=== PATIENT | male | born 2000 | race Caucasian/White ===

== ENCOUNTER 2021-03-23 22:20 | Emergency (ER) | payer OTHER, SELFPAY ==
[2021-03-23 22:23] VITALS: BP 119/70; PULSE 88; RESP 18; TEMP 37; O2SAT 100
--- NOTE | 2021-03-23 22:43 | ED.GENADULT ---
HPI - General Adult General Chief complaint: Unspecified Stated complaint: SWOLLEN THROAT Time Seen by Provider: 03/23/21 22:31 Source: patient Mode of arrival: ambulatory Limitations: no limitations History of Present Illness HPI narrative: Patient is a 20-year-old male complaining of sore throat for the past 2 weeks. Patient states it hurts when he swallows. Patient states that it feels like there is a growth in the back of my throat . Patient denies any neck swelling, fever or chills. Patient denies any chest pain or shortness of breath. Related Data Allergies Allergy/AdvReac Type Severity Reaction Status Date / Time No Known Allergies Allergy Unknown Verified 03/23/21 22:41 Review of Systems Review of Systems: All systems reviewed & are unremarkable except as noted in HPI and below Constitutional: Constitutional: Denies body ache(s), Denies chills, Denies excessive sweating, Denies fatigue, Denies fever(s), Denies headache(s), Denies lethargy, Denies malaise, Denies weakness and Denies weight loss Eyes: Eyes: Denies blurry vision, Denies change in vision and Denies loss of vision ENT: Denies dizziness, Denies ear discharge, Denies headache(s), Denies lip swelling, Denies epistaxis, Denies nasal congestion, Denies neck pain and Denies tongue swelling Cardiovascular: Cardiovascular: Denies chest pain, Denies chest pain at rest, Denies chest pain with activity, Denies diaphoresis, Denies rapid heart rate, Denies edema, Denies irregular heart rhythm, Denies lightheadedness, Denies palpitations, Denies dyspnea and Denies dyspnea on exertion Respiratory: Respiratory: Denies chest congestion, Denies cough, Denies hemoptysis, Denies dyspnea and Denies dyspnea on exertion Gastrointestinal: Gastrointestinal: Denies abdominal pain, Denies melena, Denies hematochezia, Denies diarrhea, Denies nausea, Denies vomiting and Denies hematemesis Musculoskeletal: Musculoskeletal: Denies abnormal gait, Denies deformity, Denies joint swelling, Denies limited range of motion, Denies neck pain and Denies numbness Neurologic: Denies Abnormal speech present, Denies abnormal gait, Denies confusion, Denies dizziness, Denies headache(s), Denies focal weakness, Denies loss of vision, Denies numbness, Denies Other visual disturbances, Denies Sensory deficit (Neuro) and Denies weakness Psychiatric: Psychiatric: Denies confusion, Denies depression, Denies auditory hallucinations, Denies homicidal ideation and Denies suicidal ideation Endocrine: Endocrine: Denies cold intolerance, Denies excessive sweating, Denies fatigue, Denies heat intolerance and Denies palpitations Hematologic/Lymphatic: Hematologic/Lymphatic: Denies easy bleeding and Denies easy bruising Allergic/Immunologic: Allergic/Immunologic: Denies lip swelling, Denies throat swelling and Denies tongue swelling PMFSH Comments Past medical history: None Family history: Noncontributory Social history: Positive for smoker no EtOH or drug use Exam Const: General: cooperative, healthy appearing, comfortable, no acute distress and well developed HENMT: Head: normal to inspection Ears: hearing grossly normal bilaterally and external ears normal General nose exam: Normal external nose present and Normal nares present Face and sinus: normal facial exam and sinuses nontender Mouth: Yes lip normal, Yes tongue normal and No muffled voice Throat: other (Slightly erythematous oropharyngeal area no significant swelling, no exudat) Other: Negative for exudates, negative for drooling, negative for muffled voice Eyes: General: appearance normal, both eyes and all related structures Neck: Neck: normal visual inspection, full ROM and no meningeal signs Resp: Effort & Inspection: normal respiratory effort Skin: General skin exam: normal color Neuro: General: oriented to person, oriented to place, oriented to time, gait normal and tone normal Extrem: General: normal to inspection and full ROM Psych:
[2021-03-24 00:46] VITALS: BP 128/80; PULSE 78; RESP 20; O2SAT 100
== END 2021-03-24 00:47 | disposition home or self-care (01) ==
PROVIDERS: Emergency Provider Emergency Medicine
DX: J02.8 Acute pharyngitis due to other specified organisms (principal)
CPT/HCPCS: 87081; 87880; 96372; 99283; J1100

== ENCOUNTER 2021-04-12 07:44 | Emergency (ER) | payer OTHER, SELFPAY ==
--- NOTE | ~2021-04-12 | CT_ITS ---
EXAMINATION: CT soft tissue neck w con DATE: 04/12/2021 09:19 INDICATION: Throat with left-sided pain while eating and lump/swelling at the left side of the neck. TECHNIQUE: Computed tomography (CT) of the neck was performed with 75 mL Omnipaque-350 intravenous co ntrast. Automated exposure control and iterative reconstruction technique were employed. The dose-precious gth product was 396.52 mGy-cm. COMPARISON: None FINDINGS: There is mild asymmetric swelling of the left palatine tonsil without evident abscess. There is an as ymmetrically enlarged left level 2 jugular chain lymph node which measures 3.8 x 1.8 x 1.5 cm which d emonstrates hyperemia with subtly increased enhancement. No abscess. Normal epiglottis. The airway re joe patent. Small mucous retention cyst in the right maxillary sinus. Mastoid air cells, middle ear cavities and bilateral upper lung zones are clear. Bilateral parotid and submandibular glands as wel l as the thyroid are normal. The cervical vasculature appears normal with mild mixing artifact in the bilateral internal jugular veins. Mild upper thoracic dextrocurvature. IMPRESSION: 1. Mild asymmetric swelling of the left palatine tonsil consistent with tonsillitis without abscess. 2. Asymmetrically enlarged and hyperemic likely reactive left level 2 jugular chain lymph node measur ing up to 1.5 cm in maximal short axis diameter. Recommend clinical follow-up to resolution. Reviewed, dictated and finalized at location A. IMPRESSION: 1. Mild asymmetric swelling of the left palatine tonsil consistent with tonsill itis without abscess. 2. Asymmetrically enlarged and hyperemic likely reactive left level 2 jugular c judith lymph node measuring up to 1.5 cm in maximal short axis diameter. Recommen d clinical follow-up to resolution.
[2021-04-12 07:47] VITALS: BP 126/89; PULSE 100; RESP 20; TEMP 36.8; O2SAT 94
[2021-04-12 07:53] VITALS: O2SAT 94
--- NOTE | 2021-04-12 08:02 | ED.URI ---
HPI - URI/Sore Throat General Chief Complaint: Upper Respiratory Infection Stated Complaint: SORE THROAT Time Seen by Provider: 04/12/21 07:51 History of Present Illness HPI Narrative: Sore throat for several days. Originally started 3 weeks ago on the right side. He was seen here and diagnosed with a viral infection. It improved with a course of steroids. Shortly after completion it returned on the left side. No fever. Related Data Allergies Allergy/AdvReac Type Severity Reaction Status Date / Time No Known Allergies Allergy Unknown Verified 04/12/21 07:52 Review of Systems Review of Systems: All systems reviewed & are unremarkable except as noted in HPI and below Constitutional: Constitutional: Denies chills and Denies fever(s) ENT: Reports sore throat Comments: odynophagia Cardiovascular: Cardiovascular: Denies chest pain Respiratory: Respiratory: Reports cough and Denies dyspnea Gastrointestinal: Gastrointestinal: Denies nausea and Denies vomiting PMF Social History Social History Gender identity (if verbalized by the patient): Male Exam Const: General: healthy appearing, no acute distress and alert Orientation/consciousness: patient oriented x3 HENMT: Throat: posterior oropharynx abnormal erythema Neck: Neck: lymphadenopathy (left anterior) Resp: Effort & Inspection: normal respiratory effort Auscultation: clear to auscultation bilaterally Cardio: Rate: regular rate Rhythm: regular rhythm GI: GI Palp: Yes Soft to palpation and No Tenderness to palpation present (GI) Course Vital Signs Vital signs: Vital Signs Temperature 36.8 C 04/12/21 07:47 Pulse Rate 100 04/12/21 07:47 Respiratory Rate 20 04/12/21 07:47 Blood Pressure 126/89 04/12/21 07:47 Pulse Oximetry 94 04/12/21 07:47 Temperature 36.8 C 04/12/21 07:47 Pulse Rate 68 04/12/21 12:09 Respiratory Rate 18 04/12/21 12:09 Blood Pressure 123/83 04/12/21 12:09 Pulse Oximetry 100 04/12/21 12:09 MDM - URI/Sore Throat Differential Diagnosis Differential diagnosis: Likely upper respiratory infection and pharyngitis Medical Records Attestation: I reviewed the patient's medical records. Lab Data Attestation: I reviewed the patient's lab results. Result diagrams: 04/12/21 08:41 04/12/21 09:05 Labs: Lab Results 04/12/21 04/12/21 04/12/21 Range/Units 08:41 08:41 08:41 WBC 11.3 H (4.5-10.0) K/mm3 RBC 5.34 (4.6-6.20) M/mm3 Hgb 15.4 (14.0-18.0) g/dL Hct 46.6 (42.0-52.0) % MCV 87.3 (80-100) fl MCH 28.8 (26-34) pg MCHC 33.0 (32-36) g/dl RDW 11.7 (11.5-14.5) % Plt Count 321 (150-375) k/mm3 MPV 9.7 (7.4-10.4) fl Immature Gran % (Auto) 0.2 (0-0.5) % Neut % (Auto) 55.0 (45.5-73.1) % Lymph % (Auto) 33.3 (18.3-44.2) % [place] % (Auto) 8.3 (2.6-8.5) % Eos % (Auto) 2.8 (0-4.4) % Baso % (Auto) 0.4 (0.2-1.2) % Lymph # (Auto) 3.75 H (0.9-3.2) K/mm3 [place] # (Auto) 0.9 H (0.1-0.6) K/mm3 Eos # (Auto) 0.3 (0-0.3) K/mm3 Baso # (Auto) 0.1 (0.0-0.1) K/mm3 Abs Immat Gran (auto) 0.02 (0.00-0.031) K/mm3 Absolute Neuts (auto) 6.2 (1.3-6.7) K/mm3 Absolute Nucleated RBC 0.0 (0.0-0.012) K/mm3 Nucleated RBC % 0.0 (0.0-0.2) % Sodium 139 (134-143) mmol/L Potassium 3.7 (3.4-5.0) mmol/L Chloride 101 (98-107) mmol/L Carbon Dioxide 28 (22-30) mmol/L Anion Gap 10 (8-16) mmol/L BUN 8 (8-21) mg/dL Creatinine 0.80 (0.7-1.3) mg/dL Estim Creat Clear Calc 99 ml/min Estimated GFR > 60 (59 - ) Glucose 95 (65-110) mg/dL Calcium 9.5 (8.9-10.7) mg/dL Monoscreen Negative (Negative) 04/12/21 Range/Units 09:05 WBC (4.5-10.0) K/mm3 RBC (4.6-6.20) M/mm3 Hgb (14.0-18.0) g/dL Hct (42.0-52.0) % MCV (80-100) fl MCH (26-34) pg MCHC (32-36) g/dl RDW (11.5-
[2021-04-12 08:51] LABS: Basophils Absolute Auto 0.1 K/mm3 (0.0-0.1); Basophils Percent Auto 0.4 % (0.2-1.2); Eosinophils Absolute Auto 0.3 K/mm3 (0-0.3); Eosinophils Percent Auto 2.8 % (0-4.4); Hematocrit 46.6 % (42.0-52.0); Hemoglobin 15.4 g/dL (14.0-18.0); Immature Granulocyte Absolute 0.02 K/mm3 (0.00-0.031); Immature Granulocyte Percent A 0.2 % (0-0.5); Lymphocytes Absolute Auto 3.75 K/mm3 (0.9-3.2); Lymphocytes Percent Auto 33.3 % (18.3-44.2); Mean Corpuscular Hemoglobin 28.8 pg (26-34); Mean Corpuscular Volume 87.3 fl (80-100); Mean Platelet Volume 9.7 fl (7.4-10.4); Monocytes Absolute Auto 0.9 K/mm3 (0.1-0.6); Monocytes Percent Auto 8.3 % (2.6-8.5); Neutrophils Absolute Auto 6.2 K/mm3 (1.3-6.7); Platelet Count Result 321 k/mm3 (150-375); Red Blood Count 5.34 M/mm3 (4.6-6.20); Red Cell Distribution Width 11.7 % (11.5-14.5); White Blood Count 11.3 K/mm3 (4.5-10.0)
[2021-04-12 09:02] LABS: Anion Gap 10 mmol/L (8-16); Blood Urea Nitrogen 8 mg/dL (8-21); Calcium 9.5 mg/dL (8.9-10.7); Carbon Dioxide 28 mmol/L (22-30); Chloride 101 mmol/L (98-107); Estimated CRCL calculation 99 ml/min; Estimated Glomerular Filt Rate > 60; Glucose 95 mg/dL (65-110); Potassium 3.7 mmol/L (3.4-5.0); Sodium 139 mmol/L (134-143)
[2021-04-12 09:07] LABS: Estimated CRCL calculation 88 ml/min; Estimated Glomerular Filt Rate > 60
[2021-04-12 09:39] LABS: Monoscreen Negative (Negative); Negative Monotest Control Negative (Negative); Positive Monotest Control Positive (Positive)
[2021-04-12 10:11] VITALS: BP 126/88; PULSE 65; RESP 18; O2SAT 100
[2021-04-12] MEDS: AMPICILLIN SULB 3 GM/NS 100 ML 3 GM/100 ML VIAL IVPB (11:26)
[2021-04-12] MEDS: KETOROLAC 30 MG/ML VIAL (*BKC) IV PUSH (11:27)
[2021-04-12] MEDS: DEXAMETHASONE SOD PHOS INJ 4 MG/ML VIAL 10 MG IV PUSH (11:29)
[2021-04-12 12:09] VITALS: BP 123/83; PULSE 68; RESP 18; O2SAT 100
== END 2021-04-12 12:15 | disposition home or self-care (01) ==
PROVIDERS: Emergency Provider Emergency Medicine
DX: J03.90 Acute tonsillitis, unspecified (principal)
CPT/HCPCS: 36415; 70491; 80048; 85025; 86308; 87081; 87880; 96365; 96375; 99284; J0295; J1100; J1885; Q9967

== ENCOUNTER 2021-06-05 17:10 | Emergency (ER) | payer OTHER, SELFPAY | END 2021-06-05 22:44 | disposition left against medical advice (07) | DX: Z53.21 Procedure and treatment not carried out due to patient leaving prior to being seen by health care provider (principal) | CPT/HCPCS: 99199 ==

== ENCOUNTER 2021-06-07 11:08 | Emergency (ER) | payer OTHER, SELFPAY ==
--- NOTE | ~2021-06-07 | XR_ITS ---
EXAMINATION: XR chest 2V EXAM DATE: 06/07/2021 11:31 INDICATION: Cough. TECHNIQUE: Frontal and lateral projections of the chest obtained and reviewed. Comparison is made to prior examination from 09/17/2018. FINDINGS: Small amount of ill-defined right upper lobe airspace disease, possible acute infectious p rocess. Please clinically correlate. The lungs are otherwise clear. There are no pleural effusions. The cardiomediastinal silhouette is within normal limits. There is no pneumothorax suspected. The bones and soft tissues are unremarkable. IMPRESSION: Small amount of right upper lobe acute airspace disease, possible developing pneumonia. Reviewed, dictated and finalized at location B. IMPRESSION: Small amount of right upper lobe acute airspace disease, possible d eveloping pneumonia.
[2021-06-07 11:21] VITALS: BP 123/71; PULSE 79; RESP 16; TEMP 36.8; O2SAT 99
--- NOTE | 2021-06-07 11:25 | ED.URI ---
HPI - URI/Sore Throat General Chief Complaint: Upper Respiratory Infection Stated Complaint: Cough History of Present Illness HPI Narrative: This is a 20-year-old male comes in complaining of having some shortness of breath states that he has a history of asthma. Patient states that he has had this cough for going on for a few months his parents have encouraged him to come in but he is accompanied patient states that he has not been feeling well so he came in due to increased shortness of breath Related Data Home Medications Medication Instructions Recorded Confirmed propranolol 10 mg PO DAILY 06/07/21 06/07/21 sumatriptan succinate 25 mg PO PRN PRN 06/07/21 06/07/21 Allergies Allergy/AdvReac Type Severity Reaction Status Date / Time No Known Allergies Allergy Unknown Verified 06/07/21 11:26 Review of Systems Review of Systems: Chest shortness of breath, cough All systems reviewed & are unremarkable except as noted in HPI and below PMFSH Social History Social History Gender identity (if verbalized by the patient): Male Comments At time as signature, I have reviewed and agree with nursing past medical, social, surgical and family history. Please see nursing chart for further information. There is no relevant family history pertinent to the presenting complaint. Exam Narrative: GENERAL:Well-appearing and in no acute distress. EYES: PERRLA . ENT: Nares clear, moderate rhinorrhea Mucous membranes moist. NECK: Supple. CHEST scattered wheezes throughout to auscultation. No respiratory distress. HEART: Regular rate and rhythm ABDOMEN: Soft, nontender, nondistended, normal active bowel sounds. EXTREMITIES: Normal range of motion. No edema. SKIN: Warm, dry, no rash. NEURO: No focal deficits. Alert and oriented x3. Course Course Emergency Course: Chest x-ray represents possibility of pneumonia Vital Signs Vital signs: Vital Signs Temperature 98.2 F 06/07/21 11:21 Pulse Rate 79 06/07/21 11:21 Respiratory Rate 16 06/07/21 11:21 Blood Pressure 123/71 06/07/21 11:21 Pulse Oximetry 99 06/07/21 11:21 Temperature 98.2 F 06/07/21 11:21 Pulse Rate 79 06/07/21 11:21 Respiratory Rate 16 06/07/21 11:21 Blood Pressure 123/71 06/07/21 11:21 Pulse Oximetry 99 06/07/21 11:21 MDM - URI/Sore Throat Differential Diagnosis Differential diagnosis: Likely upper respiratory infection, croup, otitis media, sinusitis, viral infection, bronchitis, influenza, pharyngitis and other (Pneumonia covid) Lab Data Labs: Lab Results 06/07/21 Range/Units 11:45 POC SARS CoV-2 Ag Negative (Negative) Discharge Plan Discharge Clinical Impression: Pneumonia Qualifiers: Pneumonia type: due to unspecified organism Laterality: unspecified laterality Lung location: upper lobe of lung Qualified Code(s): J18.9 - Pneumonia, unspecified organism Patient Disposition: Home, Self-Care Condition: Stable Instructions: Antibiotic Form, Pneumonia (ED) Additional Instructions: Recommend antihistamine such as Benadryl at night time and Claritin/Zyrtec/Jane during the day Also, recommend symptomatic treatment includes: rest, fluids, and increase humidity of the air at home. Recommend Acetaminophen or nonsteroidal anti-inflammatory agents (NSAIDs) as directed in the bottle to reduce fever and/pain/headache. Avoid smoking/second-hand smoke. Limit visits to areas with large crowds. Please schedule a follow-up visit with your personal physician for further evaluation and treatment within 3-5days. Including recheck and discussion of your blood pressure. If your symptoms persist, change or worsen significantly before you can contact your personal physician then please, without delay, go to the emergency department for further evaluation Prescriptions: New albuterol sulfate 90 mcg/actuation HFA aerosol inhaler 2 puff inhalation QID PRN
== END 2021-06-07 12:05 | disposition home or self-care (01) ==
PROVIDERS: Emergency Provider Nurse Practitioner Family
DX: J18.9 Pneumonia, unspecified organism (principal); Z20.822 Contact with and (suspected) exposure to COVID-19
CPT/HCPCS: 71046; 87426; 99213; C9803; G0463

== ENCOUNTER 2022-08-23 18:14 | Emergency (ER) | payer OTHER, SELFPAY ==
--- NOTE | ~2022-08-23 | XR_ITS ---
EXAMINATION: XR chest 2V Exam Date/Time: 08/23/2022 18:26 PRE FABRICATOR HISTORY: cough with sob Comparison: 06/07/2021 and 09/17/2018. RESULT: Lines, tubes, and devices: None. Lungs and pleura: Streaky perihilar opacities and cuffing. No focal consolidation, pneumothorax, or effusion. Cardiomediastinal silhouette: Stable. Other: No acute osseous or upper abdominal finding. IMPRESSION: Pulmonary opacities may represent bronchiolitis, as can be seen with atypical infection, asthma, aspi ration, and small airways disease. Reviewed, dictated and finalized at location K. FABRICATOR IMPRESSION: Pulmonary opacities may represent bronchiolitis, as can be seen with atypical i nfection, asthma, aspiration, and small airways disease.
[2022-08-23 18:23] VITALS: BP 125/80; PULSE 108; RESP 18; TEMP 37; O2SAT 99
--- NOTE | 2022-08-23 18:36 | ED.URI ---
HPI - URI/Sore Throat General Chief Complaint: Upper Respiratory Infection Stated Complaint: Cough,Shortness of Breath Time Seen by Provider: 08/23/22 18:36 Source: patient Mode of arrival: ambulatory Limitations: no limitations History of Present Illness HPI Narrative: 22-year-old male presents with complaint of cough, shortness of breath chest tightness for the past 2-3 days. Reports history of pneumonia, bronchitis. Patient vapes. Had asthma as a child. States that his boss made him leave work early today to do a COVID test, which was negative. Does not currently have a primary care physician. Afebrile. Used his sister's albuterol nebulizer prior to arrival. all systems reviewed and negative except as noted above. Related Data Allergies Allergy/AdvReac Type Severity Reaction Status Date / Time No Known Allergies Allergy Unknown Verified 08/23/22 18:17 Review of Systems Review of Systems: CONSTITUTIONAL: Denies fever, chills, or sweats. EYES: Denies visual changes, redness, or discharge. ENT: Denies rhinorrhea, congestion, sore throat, or otalgia. CARDIOVASCULAR: Denies chest pain, palpitations, or edema. RESPIRATORY: Reports cough, chest tightness and dyspnea with exertion. GASTROINTESTINAL: Denies abdominal pain, nausea, vomiting, or diarrhea. GENITOURINARY: Denies dysuria or hematuria. SKIN: Denies rash or itching. MUSCULOSKELETAL: Denies back pain, joint pain, or myalgia. NEUROLOGIC: Denies headache, numbness, or weakness. PSYCHIATRIC: Denies anxiety or depression. All other systems reviewed are negative, except as documented in HPI. PMFSH Social History Social History Gender identity (if verbalized by the patient): Male Comments At time of signature, agree with nursing past medical, surgical, social and family history. There is no relevant family history pertinent to the presenting complaint. Exam Narrative: GENERAL: This is a well-nourished, well-developed patient, in no apparent distress. HEAD: normocephalic, atraumatic. EYES: PERRL. Sclera clear/white. Vision is grossly intact. EARS: External ears normal, auditory canals clear and without drainage, TMs normal without perforation. Hearing grossly intact. NOSE: External nose normal with no obvious nasal discharge, nares without redness, no rhinorrhea. THROAT: Mucous membranes moist, posterior pharynx clear. NECK: Neck supple, non-tender without lymphadenopathy, masses or thyromegaly. CARDIOVASCULAR: Regular rate and rhythm without murmurs, gallops, or rubs. RESPIRATORY: coarse lung sounds on inspiration and expiration throughout all lung paul. No respiratory distress. SKIN: warm, Dry, intact with no suspicious lesions or rash, good texture and turgor. NEURO: awake, alert, and oriented to person, place and time. There were no obvious focal neurologic abnormalities. EXTREMITIES: No joint tenderness, effusion, or edema noted. Course Course Level of Care: Express Care Visit Vital Signs Vital signs: Vital Signs Temperature 37.0 C 08/23/22 18: Pulse Rate 108 H 08/23/22 18:23 Respiratory Rate 18 08/23/22 18:23 Blood Pressure 125/80 08/23/22 18:23 Pulse Oximetry 99 08/23/22 18:23 Oxygen Delivery Room Air 08/23/22 18:23 Temperature 37.0 C 08/23/22 18:23 Pulse Rate 108 H 08/23/22 18:23 Respiratory Rate 18 08/23/22 18:23 Blood Pressure 125/80 08/23/22 18:23 Pulse Oximetry 99 08/23/22 18:23 Oxygen Delivery Room Air 08/23/22 18:23 Reviewed MDM - URI/Sore Throat MDM Narrative Medical decision making narrative: patient unable to [facility] prescriptions until tomorrow due to pharmacies being closed. His sister does have albuterol nebulizer that he can use. He was given Solu-Medrol IM prior to discharge. will prescribe antibiotic due to pneumonia history. No respiratory distress. Patient is aware of diagnosis, understands and agrees to mike
[2022-08-23] MEDS: methylPREDNISolone SOD SUCC 125 MG VIAL IM (19:01)
== END 2022-08-23 19:02 | disposition home or self-care (01) ==
PROVIDERS: Emergency Provider Nurse Practitioner Family
DX: J21.9 Acute bronchiolitis, unspecified (principal); J45.909 Unspecified asthma, uncomplicated
CPT/HCPCS: 71046; 96372; 99213; G0463; J2930

== ENCOUNTER 2022-10-11 18:09 | Emergency (ER) | payer OTHER, SELFPAY ==
[2022-10-11 18:20] VITALS: BP 118/78; PULSE 80; RESP 20; TEMP 36.4; O2SAT 99
--- NOTE | 2022-10-11 18:35 | ED.GENADULT ---
HPI - General Adult General Chief complaint: Urogenital-Male Stated complaint: sti shot Source: patient Mode of arrival: ambulatory Limitations: no limitations History of Present Illness HPI narrative: Patient presents requesting testing for chlamydia. He indicates his girlfriend is currently and was advised by her OBGYN about 3-4 weeks ago that she has chlamydia. She was treated with azithromycin. He was never treated and he is concerned that they have been passing it back and forth. He has experienced some dysuria as of this week. He denies any urethral discharge or other urinary symptoms outside of dysuria. No history of STI in past. No additional complaints or concerns. Related Data Home Medications Medication Instructions Recorded Confirmed buspirone 5 mg tablet 5 mg PO BID 10/11/22 10/11/22 propranolol 10 mg tablet 10 mg PO DAILY 10/11/22 10/11/22 sumatriptan succinate 25 mg tablet 25 mg PO DAILY 10/11/22 10/11/22 Allergies Allergy/AdvReac Type Severity Reaction Status Date / Time No Known Allergies Allergy Unknown Verified 10/11/22 18:16 Review of Systems Review of Systems: CONSTITUTIONAL: Denies fever, chills, or sweats. EYES: Denies visual changes, redness, or discharge. ENT: Denies rhinorrhea, congestion, sore throat, or otalgia. CARDIOVASCULAR: Denies chest pain, palpitations, or edema. RESPIRATORY: Denies cough or dyspnea. GASTROINTESTINAL: Denies abdominal pain, nausea, vomiting, or diarrhea. GENITOURINARY: reports dysuria. Denies hematuria, urethral discharge, scrotal swelling. SKIN: Denies rash or itching. MUSCULOSKELETAL: Denies back pain, joint pain, or myalgia. NEUROLOGIC: Denies headache, numbness, dizziness, or weakness. PSYCHIATRIC: Denies anxiety or depression. [facility] Past Medical History Medical History No pertinent past medical history Surgical History Surgical History No pertinent past surgical history Family History Family History Mother Family history non-contributory Social History Social History (Updated 10/11/22 @ 18:40 by Fermín Rollins, [facility], ) Additional living arrangements comments: lives with girlfriend Gender identity (if verbalized by the patient): Male Sexual Orientation (if Verbalized by the Patient): Straight or Heterosexual Spiritual care concerns: No Exam Narrative: GENERAL: Well-appearing, well-nourished, and in no acute distress. HEAD: Normocephalic, atraumatic. EYES: PERRLA and EOMI. ENT: Nares clear, no rhinorrhea or epistaxis. Mucous membranes moist. Oropharynx without tonsillar hypertrophy exudate or other lesions. Bilateral TMs pearly jarrett nonbulging NECK: Supple. No adenopathy or masses. No carotid bruits or JVD CHEST: Clear to auscultation. No respiratory distress. No wheezes rales or rhonchi HEART: Regular rate and rhythm. No murmur heard. Normal peripheral pulses. ABDOMEN: Soft, nontender, nondistended, normal active bowel sounds. GENITAL: no external genital lesions. No inguinal lymphadenopathy. No scrotal swelling. No testicular masses or tenderness. No urethral discharge. EXTREMITIES: Normal range of motion. No edema. SKIN: Warm, dry, no rash. NEURO: No focal deficits. Alert and oriented x3. PSYCH: Normal mood and affect. Course Course Emergency Course: This is a 22-year-old male who presented for evaluation of dysuria after recently being exposed to chlamydia. Patient had gonorrhea, chlamydia, Trichomonas testing performed today will treat for all as his girlfriend is and this would put her at high risk for miscarriage. Discussed safer sex practices. Advised that they should not have sexual intercourse until 1 week following completion of the therapy which should be 2 weeks from now. Encouraged him to follow up ou
[2022-10-11] MEDS: cefTRIAXone 500 MG, LIDOCAINE HCL 1% LOCAL INJ 1 ML IM (18:45)
[2022-10-11] MEDS: metroNIDAZOLE 250 MG TABLET 2000 MG PO (18:53)
== END 2022-10-11 19:01 | disposition home or self-care (01) ==
PROVIDERS: Emergency Provider Nurse Practitioner
DX: R30.0 Dysuria (principal); Z20.2 Contact with and (suspected) exposure to infections with a predominantly sexual mode of transmission
CPT/HCPCS: 81003; 87491; 87591; 87661; 96372; 99213; A9270; G0463; J0696

== ENCOUNTER 2023-05-19 17:49 | Emergency (ER) | payer OTHER, SELFPAY ==
--- NOTE | 2023-05-19 17:52 | ED.URI ---
HPI - URI/Sore Throat General Chief Complaint: Upper Respiratory Infection Stated Complaint: Flu symptoms Time Seen by Provider: 05/19/23 17:51 Source: patient Mode of arrival: ambulatory Limitations: no limitations History of Present Illness HPI Narrative: Patient is a 22-year-old male that presents with fever, chills, runny nose, sore throat, headache since yesterday. Patient states he had 1 episode of coughing so hard he vomited which helped relieve congestion. Patient taking Mucinex. Denies any ear pain, sinus pressure, frequent cough, shortness of breath, nausea, vomiting, diarrhea. Related Data Home Medications Medication Instructions Recorded Confirmed buspirone 5 mg tablet 5 mg PO BID 10/11/22 10/11/22 propranolol 10 mg tablet 10 mg PO DAILY 10/11/22 10/11/22 sumatriptan succinate 25 mg tablet 25 mg PO DAILY 10/11/22 10/11/22 Allergies Allergy/AdvReac Type Severity Reaction Status Date / Time No Known Allergies Allergy Unknown Verified 10/11/22 18:16 Review of Systems Review of Systems: All systems reviewed & are unremarkable except as noted in HPI and below Constitutional: Constitutional: Denies body ache(s), Reports chills, Denies fatigue, Reports fever(s), Denies headache(s), Denies malaise and Denies weakness Eyes: Eyes: Denies blurry vision, Denies itchy eyes and Denies loss of vision ENT: Denies otalgia, Reports headache(s), Reports nasal congestion, Reports nasal discharge, Denies sinus pain and Reports sore throat Cardiovascular: Cardiovascular: Denies chest pain, Denies irregular heart rhythm and Denies dyspnea Respiratory: Respiratory: Denies cough and Denies dyspnea Gastrointestinal: Gastrointestinal: Denies abdominal pain, Denies diarrhea, Denies nausea and Denies vomiting Musculoskeletal: Musculoskeletal: Denies back pain, Denies myalgias and Denies arthralgias Integumentary/Breasts: Skin/Breast: Denies pruritus and Denies rash Neurologic: Reports headache(s), Denies loss of vision and Denies weakness Psychiatric: Psychiatric: Reports no additional psychiatric complaints Endocrine: Endocrine: Denies fatigue Allergic/Immunologic: Allergic/Immunologic: Denies itchy eyes PMFSH Past Medical History Medical History (Updated 05/19/23 @ 18:31 by Savanna Chi, [employer]) No pertinent past medical history Surgical History Surgical History No pertinent past surgical history Family History Family History Mother Family history non-contributory Social History Social History (Updated 10/11/22 @ 18:40 by Fermín Rollins, JACINTA, ) Additional living arrangements comments: lives with girlfriend Gender identity (if verbalized by the patient): Male Sexual Orientation (if Verbalized by the Patient): Straight or Heterosexual Spiritual care concerns: No Comments At time of signature, agree with nursing past medical, surgical, social and family history. There is no relevant family history pertinent to the presenting complaint. Exam Const: General: cooperative, healthy appearing, comfortable, no acute distress and well nourished Nutritional Appearance: well nourished Orientation/consciousness: patient oriented x3 Limitations: no limitations HENMT: Head: normal to inspection, normocephalic and atraumatic Ears: hearing grossly normal bilaterally, external ears normal, EAC's normal, no periauricular adenopathy and TM abnormal obstructed by cerumen bilateral Face/Nose/Sinus: Normal external nose present, Abnormal mucous membranes and turbinates present erythematous bilateral and diffuse, normal facial exam, sinuses nontender and face symmetric Face and sinus: normal facial exam, sinuses nontender and face symmetric Mouth: Yes Normal oral and palatal mucosa present, Yes lip normal, Yes tongue normal, Yes Normal salivary glands and ducts present, Yes oropharynx norm
[2023-05-19 18:00] VITALS: BP 117/68; PULSE 104; RESP 16; TEMP 37.2; O2SAT 99
== END 2023-05-19 18:36 | disposition home or self-care (01) ==
PROVIDERS: Emergency Provider Nurse Practitioner Family; PCP Internal Medicine
DX: J06.9 Acute upper respiratory infection, unspecified (principal); H61.23 Impacted cerumen, bilateral; Z20.822 Contact with and (suspected) exposure to COVID-19
CPT/HCPCS: 87081; 87426; 87880; 99213; C9803; G0463

== ENCOUNTER 2023-05-22 10:31 | Emergency (ER) | payer OTHER, SELFPAY ==
--- NOTE | 2023-05-22 10:36 | ED.LOWEXIN ---
HPI - Extremity Injury (Lower) General Chief Complaint: Extremity Injury, Lower Stated Complaint: Injured right foot Time Seen by Provider: 05/22/23 10:38 Source: patient, RN notes reviewed and old records reviewed Mode of arrival: ambulatory Limitations: no limitations History of Present Illness HPI Narrative: 22-year-old male presents to the [facility] with complaints of pain to the dorsal aspect right foot. States last night he kicked a bike rack. Bruising, swelling noted over distal aspect of metatarsals 2 3 and 4. Able to move toes, positive pedal pulse. Sensation intact, capillary refill under 2 seconds. Patient reports pain with putting on of shoe as well as walking. Onset (ago): hour(s) (13) Injury: Right: foot Type of Injury: blunt Exacerbating factors: weight bearing and movement Associated symptoms: swelling and able to partially bear weight Related Data Home Medications Medication Instructions Recorded Confirmed albuterol sulfate 90 mcg/actuation 90 mcg inhalation DIRECTED 05/22/23 05/22/23 aerosol inhaler Allergies Allergy/AdvReac Type Severity Reaction Status Date / Time No Known Allergies Allergy Unknown Verified 10/11/22 18:16 Review of Systems Review of Systems: All systems reviewed & are unremarkable except as noted in HPI and below Constitutional: Constitutional: Reports no additional constitutional complaints Eyes: Eyes: Reports no additional eye complaints ENT: Reports system reviewed and no additional complaints, except as documented Cardiovascular: Cardiovascular: Reports no additional cardiovascular complaints, Denies chest pain and Denies dyspnea Respiratory: Respiratory: Reports no additional respiratory complaints, Denies chest congestion, Denies cough and Denies dyspnea Gastrointestinal: Gastrointestinal: Reports no additional gastrointestinal complaints, Denies abdominal pain, Denies nausea and Denies vomiting Musculoskeletal: Musculoskeletal: Reports as per HPI Integumentary/Breasts: Skin/Breast: Reports system reviewed and no additional complaints, except as docu Neurologic: Reports system reviewed and no additional complaints, except as documented Psychiatric: Psychiatric: Reports no additional psychiatric complaints Allergic/Immunologic: Allergic/Immunologic: Reports no additional allergic/immunologic complaints [facility] Past Medical History Medical History (Updated 05/22/23 @ 11:12 by Kaia Bird APRN) No pertinent past medical history Surgical History Surgical History No pertinent past surgical history Family History Family History Mother Family history non-contributory Social History Social History Additional living arrangements comments: lives with girlfriend Gender identity (if verbalized by the patient): Male Sexual Orientation (if Verbalized by the Patient): Straight or Heterosexual Spiritual care concerns: No Comments At the time of my signature, I reviewed and agree with the nursing past medical, surgical, social, and family history. There is no relevant family history pertinent to the patient complaint. Exam Const: General: cooperative, healthy appearing, comfortable, no acute distress, well developed, alert and well nourished Nutritional Appearance: well nourished Orientation/consciousness: patient oriented x3 Limitations: no limitations HENMT: Head: normal to inspection Ears: hearing grossly normal bilaterally and external ears normal Face/Nose/Sinus: Normal external nose present, Normal nares present, Normal nasal mucous membranes and turbinates present and normal facial exam Face and sinus: normal facial exam Mouth: Yes lip normal Eyes: General: appearance normal, both eyes and all related structures Alignment and Position: alignment normal Periorbital: perio
[2023-05-22 10:41] VITALS: BP 123/78; PULSE 84; RESP 16; TEMP 36.4; O2SAT 100
== END 2023-05-22 11:19 | disposition home or self-care (01) ==
PROVIDERS: Emergency Provider Nurse Practitioner; PCP Internal Medicine
DX: S90.31XA Contusion of right foot, initial encounter (principal); W21.89XA Striking against or struck by other sports equipment, initial encounter
CPT/HCPCS: 73630; 99213; G0463

== ENCOUNTER → 2023-06-11 09:39 | Outpatient (CLI) | payer OTHER, SELFPAY ==
--- NOTE | ~2023-06-11 | CT_ITS ---
EXAMINATION: CT diagnostic chest wo con DATE: 06/11/2023 09:53 INDICATION: Chronic cough TECHNIQUE: Computed tomography (CT) of the chest was performed without intravenous contrast. The dose -length product (DLP) was 143.60 mGy-cm. Automated exposure control and iterative reconstruction tech nique were employed. COMPARISON: None FINDINGS: The lungs are free of acute opacities. No pleural effusion or pneumothorax. No pathological ly enlarged thoracic lymph nodes are identified. The heart size is normal. The visualized osseous str uctures are unremarkable. Mild bilateral gynecomastia is noted. IMPRESSION: 1. No CT correlate for the patient's symptoms. Reviewed, dictated and finalized at location L.
== END ==
PROVIDERS: PCP Internal Medicine; Visit Provider Internal Medicine
DX: R05.3 Chronic cough (principal)
CPT/HCPCS: 71250

== ENCOUNTER 2023-09-26 14:10 | Emergency (ER) | payer OTHER, SELFPAY ==
[2023-09-26 14:28] VITALS: BP 114/70; PULSE 91; RESP 16; TEMP 36.8; O2SAT 100
--- NOTE | 2023-09-26 14:49 | ED.URI ---
HPI - URI/Sore Throat General Chief Complaint: Upper Respiratory Infection Stated Complaint: Cough Time Seen by Provider: 09/26/23 15:16 Source: patient, RN notes reviewed and old records reviewed Mode of arrival: ambulatory Limitations: no limitations History of Present Illness HPI Narrative: 23-year-old male presents to the [facility] with complaints of a cough since Thursday, 3 days ago. Reports a history of asthma but has not had any issues in last couple of years. Denies any other symptoms. Denies shortness of breath denies fevers. Patient states that this morning he coughed up some green stuff in his parents told on, get evaluated. Has taken DayQuil and NyQuil Denies concerns for COVID or flu Related Data Home Medications Medication Instructions Recorded Confirmed albuterol sulfate 90 mcg/actuation 90 mcg inhalation DIRECTED 05/22/23 05/22/23 aerosol inhaler Allergies Allergy/AdvReac Type Severity Reaction Status Date / Time No Known Allergies Allergy Unknown Verified 10/11/22 18:16 Review of Systems Review of Systems: All systems reviewed & are unremarkable except as noted in HPI and below Constitutional: Constitutional: Reports no additional constitutional complaints Eyes: Eyes: Reports no additional eye complaints ENT: Reports system reviewed and no additional complaints, except as documented Cardiovascular: Cardiovascular: Reports no additional cardiovascular complaints, Denies chest pain and Denies dyspnea Respiratory: Respiratory: Reports as per HPI, Denies chest congestion, Reports cough, Denies pain on inspiration, Denies pain with cough, Denies dyspnea and Denies wheezing Gastrointestinal: Gastrointestinal: Reports no additional gastrointestinal complaints, Denies abdominal pain, Denies nausea and Denies vomiting Musculoskeletal: Musculoskeletal: Reports no additional musculoskeletal complaints Integumentary/Breasts: Skin/Breast: Reports system reviewed and no additional complaints, except as docu Neurologic: Reports system reviewed and no additional complaints, except as documented Psychiatric: Psychiatric: Reports no additional psychiatric complaints Allergic/Immunologic: Allergic/Immunologic: Reports no additional allergic/immunologic complaints PMFSH Past Medical History Medical History No pertinent past medical history Surgical History Surgical History No pertinent past surgical history Family History Family History Mother Family history non-contributory Social History Social History Additional living arrangements comments: lives with girlfriend Gender identity (if verbalized by the patient): Male Sexual Orientation (if Verbalized by the Patient): Straight or Heterosexual Spiritual care concerns: No Comments At the time of my signature, I reviewed and agree with the nursing past medical, surgical, social, and family history. There is no relevant family history pertinent to the patient complaint. Exam Const: General: cooperative, healthy appearing, comfortable, no acute distress, well developed, alert and well nourished Nutritional Appearance: well nourished Orientation/consciousness: patient oriented x3 Limitations: no limitations HENMT: Head: normal to inspection Ears: hearing grossly normal bilaterally, external ears normal, TM's normal bilaterally, EAC's normal, mastoids normal and no periauricular adenopathy Face/Nose/Sinus: Normal external nose present, Normal nares present, Normal nasal mucous membranes and turbinates present, normal facial exam and face symmetric Face and sinus: normal facial exam and face symmetric Mouth: Yes Normal oral and palatal mucosa present, Yes lip normal and Yes moist mucous membranes Throat: posterior lucien
== END 2023-09-26 15:36 | disposition home or self-care (01) ==
PROVIDERS: Emergency Provider Nurse Practitioner
DX: J40 Bronchitis, not specified as acute or chronic (principal); J06.9 Acute upper respiratory infection, unspecified; J45.909 Unspecified asthma, uncomplicated
CPT/HCPCS: 99213; G0463

== ENCOUNTER 2023-11-01 00:55 | Emergency (ER) | payer OTHER, SELFPAY ==
[2023-11-01 01:05] VITALS: BP 143/93; PULSE 110; RESP 20; TEMP 36.9; O2SAT 99
--- NOTE | 2023-11-01 01:20 | PC.NURSE ---
ERP notified of patients Mcclain score, no SI precautions ordered. Patients SO now arrives at bedside.
--- NOTE | 2023-11-01 01:58 | ED.GENADULT ---
HPI - General Adult General Chief complaint: Psychiatric Symptoms Stated complaint: psych consult History of Present Illness HPI narrative: This is a 23-year-old male brought in by police for a psych eval. The patient was in an argument with his girlfriend about her sending text other men. the patient's girlfriend were yelling at each other in the [employer] parking lot. At 1 point he said that he was going shoot himself. Police were called by the [employer] attendance and when they arrived the patient told them that he did have a gun in his center console. At this time he was calm and acting appropriately. Police called EMS asked that he come to the hospital to be evaluated. The patient agreed and came with EMS. At this time he has no complaints. He has no SI HI. He is not acting intoxicated or psychotic. The patient states that he got worked up while fighting with his girlfriend and said some stupid things. Related Data Home Medications Medication Instructions Recorded Confirmed trazodone 50 mg tablet mg 11/01/23 Allergies Allergy/AdvReac Type Severity Reaction Status Date / Time No Known Allergies Allergy Unknown Verified 11/01/23 01:09 [facility] Past Medical History Medical History No pertinent past medical history Surgical History Surgical History No pertinent past surgical history Family History Family History Mother Family history non-contributory Social History Social History Additional living arrangements comments: lives with girlfriend Gender identity (if verbalized by the patient): Male Sexual Orientation (if Verbalized by the Patient): Straight or Heterosexual Spiritual care concerns: No Exam Narrative: APPEARANCE: No apparent distress. Patient is calm, A&O x3 Head: atraumatic. EYES: EOMI, NOSE: Atraumatic NECK: Trachea midline RESPIRATORY: No increased rate of breathing CARDIOVASCULAR: RRR, ABDOMINAL: Non-distended MUSCULOSKELETAl: No obvious deformities NEURO: Alert. Moving 4/4 extremities SKIN:: Warm, dry. Normal color PSYCHIATRIC: Normal affect Course Vital Signs Vital signs: Vital Signs Temperature 98.5 F 11/01/23 01:05 Pulse Rate 110 H 11/01/23 01:05 Respiratory Rate 11/01/23 01:05 Blood Pressure 143/93 H 11/01/23 01:05 Pulse Oximetry 99 11/01/23 01:05 Oxygen Delivery Room Air 11/01/23 01:05 Temperature 98.5 F 11/01/23 01:05 Pulse Rate 110 H 11/01/23 01:05 Respiratory Rate 20 11/01/23 01:05 Blood Pressure 143/93 H 11/01/23 01:05 Pulse Oximetry 99 11/01/23 01:05 Oxygen Delivery Room Air 11/01/23 01:05 Medical Decision Making MDM Narrative Medical decision making narrative: -Course: 23-year-old male brought in by EMS for psychiatric eval. the patient told girlfriend he is going to shoot himself while they were in a heated argument. When the police arrived the patient was calm and collected. He admits to being upset and saying things he didnt mean. No current SI/HI. No history of SI or psychiatric illness. patient is not clinically intoxicated. His girlfriend is at bedside and corroborates his story. The police have secured his firearm. At this time I have no concern for suicidal ideation or psychiatric illness. Patient will be discharged. -DDX includes but is not limited to: Interpersonal conflict, anger issue, SI, depression, adjustment disorder -Social determinants of health: patient works as a journeyman pipe welder, lives with his girlfriend -Shared decision making / Disposition: discharged Vital Signs Vital Signs: Vital Signs Temperature 98.5 F 11/01/23 01:05 Pulse Rate 110 H 11/01/23 01:05 Respiratory Rate 11/01/23 01:05 Blood Pressure 143/93 H 11/01/23 01:05 Pulse Oxime
== END 2023-11-01 02:20 | disposition home or self-care (01) ==
PROVIDERS: Emergency Provider Emergency Medicine
DX: R45.4 Irritability and anger (principal)
CPT/HCPCS: 99281

== ENCOUNTER 2024-08-26 09:27 | Emergency (ER) | payer OTHER, SELFPAY ==
[2024-08-26 09:33] VITALS: BP 123/80; PULSE 99; RESP 16; TEMP 36.7; O2SAT 97
--- NOTE | 2024-08-26 09:39 | ED.URI ---
HPI - URI/Sore Throat General Chief Complaint: Upper Respiratory Infection Stated Complaint: flu/cold symptoms/sob Time Seen by Provider: 08/26/24 09:46 Source: patient and RN notes reviewed Mode of arrival: ambulatory Limitations: no limitations History of Present Illness HPI Narrative: 24-year-old male with history of asthma presents with concern for 3 week history of cough. He has been using his albuterol inhaler and nebulizer frequently over the past 3 weeks. Reports of last couple days he has felt worse with some nausea, diarrhea, head congestion sinus drainage MD elicited complaint: cough Related Data Home Medications Medication Instructions Recorded Confirmed trazodone 50 mg tablet mg 11/01/23 albuterol sulfate 90 mcg/actuation inhalation 08/26/24 aerosol inhaler Allergies Allergy/AdvReac Type Severity Reaction Status Date / Time No Known Allergies Allergy Unknown Verified 11/01/23 01:09 Review of Systems Review of Systems: CONSTITUTIONAL: Reports malaise. Denies chills, sweats, or fever. EYES: Denies visual changes, redness, or discharge. ENT: Reports rhinorrhea, congestion. Denies sinus pain, otalgia and sore throat. CARDIOVASCULAR: Denies chest pain, palpitations, or edema. RESPIRATORY: Reports cough. Denies dyspnea. GASTROINTESTINAL: Denies abdominal pain, nausea, vomiting, diarrhea SKIN: Denies rash or itching. MUSCULOSKELETAL: Denies myalgia. NEUROLOGIC: Denies headache. All systems reviewed & are unremarkable except as noted in HPI and below PMFSH Past Medical History Medical History No pertinent past medical history Surgical History Surgical History No pertinent past surgical history Family History Family History Mother Family history non-contributory Social History Social History Additional living arrangements comments: lives with girlfriend Gender identity (if verbalized by the patient): Male Sexual Orientation (if Verbalized by the Patient): Straight or Heterosexual Spiritual care concerns: No Comments At time of signature, agree with nursing past medical, surgical, social and family history. There is no relevant family history pertinent to the presenting complaint Exam Narrative: GENERAL: Well-appearing, well-nourished, and in no acute distress. HEAD: Normocephalic EYES: PERRLA, conjunctivae clear ENT: Nares clear. Mucous membranes moist. TM pearly jarrett with dull light reflex bilaterally; no tragal tenderness. Oropharynx not erythematous without lesions. Tonsils not enlarged and without exudate, no drooling, no hoarseness, no trismus, uvula midline. NECK: Supple. No lymphadenopathy CHEST: Expiratory wheeze noted in the right lower and upper lung, breath sounds equal. No rhonchi, rales, or stridor. No respiratory distress, speaks in full sentences. HEART: Regular rate and rhythm. No murmur heard. SKIN: Warm, dry, no rash. NEURO: Alert and oriented x3. PSYCH: Normal mood and affect Course Course Emergency Course: Patient is aware of diagnosis, understands and agrees to treatment plan. Anticipatory guidance given. Patient agrees to follow-up as directed and is aware of reasons to seek care at the emergency department. Portions of this record may have been created with voice recognition software Level of Care: Express Care Visit Vital Signs Vital signs: Vital Signs Temperature 98.1 F 08/26/24 09:33 Pulse Rate 99 08/26/24 09:33 Respiratory Rate 16 08/26/24 09:33 Blood Pressure 123/80 08/26/24 09:33 Pulse Oximetry 97 08/26/24 09:33 Oxygen Delivery Room Air 08/26/24 09:33 Temperature 98.1 F 08/26/24 09:33 Pulse Rate 99 08/26/24 09:33 Respiratory Rate 16 08/26/24 09:33 Blood Pressure 123/80 08/26/24 09:33 Pulse Oximetry 97 08/26/24 09:33 Oxygen Delivery Room Air 08/26/24 09:33 Reviewed. MDM - URI/Sore Throat MDM Narrative Medical decision making narrative: Differential diagnosis considered: Bradford virus, strep pharyngitis, allergic rhinitis, upper respiratory tract infection, sinusitis, rhinosinusitis, nasopharyngitis. viral pharyngitis, otitis media, otitis externa, pneumonia, bronchitis, viral cough syndrome, viral syndrome, and influenza. Exam findings show no acute concerns or changes; patient is non-toxic appearing and is in no distress. Patient is appropriate for outpatient treatment and follow-up. Lab Data Attestation: I reviewed the patient's lab results. Critical Care Time Critical Care Time Critical Care Time: No Discharge Plan Discharge Clinical Impression: Asthma exacerbation Patient Disposition: Home, Self-Care Condition: Stable Instructions: Antibiotic Form, Asthma (ED) Additional Instructions: Take medicines as directed. Visit your primary care doctor if: You have wheezing, shortness of breath, or a cough even if taking medicine to prevent attacks. You have thickening of sputum. Your sputum changes from clear or white to yellow, green, jarrett, or bloody. You have any problems that may be related to the medicines you are taking (such as a rash, itching, swelling, or trouble breathing). You are using a reliever medicine more than 2 to 3 times per week. Visit the ER if: You are short of breath even at rest or when doing very little physical activity. You develop difficulty eating, drinking, or talking due to asthma symptoms. You have chest pain or you feel that your heart is beating fast. You are lightheaded, dizzy, faint or have bluish lips or fingernails. You have a fever or persistent symptoms for more than 2 to 3 days or symptoms suddenly get worse. You seem to be getting worse and are unresponsive to treatment during an asthma attack. Prescriptions: New albuterol sulfate 2.5 mg /3 mL (0.083 %) solution for nebulization 2.5 mg inhalation Q4H PRN (Reason: shortness of breath or wheezing) Qty: 75 0RF azithromycin [Zithromax Z-Nakul] 250 mg tablet See Rx Instructions .ROUTE .COMPLEX Qty: 6 0RF Rx Instructions: take 500 mg today (day 1), then 250 mg for 4 days (days 2-5) methylprednisolone [Medrol (Nakul)] 4 mg tablets,dose pack See Rx Instructions .ROUTE .COMPLEX Qty: 21 0RF Rx Instructions: orally per package directions albuterol sulfate 90 mcg/actuation HFA aerosol inhaler 2 puff INHALATION QID PRN (Reason: shortness of breath or wheezing) Qty: 8.5 0RF No Action albuterol sulfate 90 mcg/actuation HFA aerosol inhaler INHALATION (DME) Aerochamber MV Spacer See Rx Instructions .Route Qty: 1 0RF Rx Instructions: As directed trazodone 50 mg tablet Follow-up/Referrals: PHYSICIAN,[facility] [employer] [facility]ERSON [Primary Care Provider] - Stand Alone Forms: Work/School Release IP Time of Disposition: 09:55
== END 2024-08-26 10:05 | disposition home or self-care (01) ==
PROVIDERS: Emergency Provider Nurse Practitioner
DX: J45.901 Unspecified asthma with (acute) exacerbation (principal)
CPT/HCPCS: 99213; G0463